=== PATIENT | male | born 1970 | race Caucasian/White ===

== ENCOUNTER 2023-02-05 13:50 | Emergency (ER) | payer OTHER ==
[~2023-02-05] VITALS: Ht 170.2 cm; Wt 98.9 kg
[2023-02-05 13:55] VITALS: BP 130/85
== END 2023-02-05 15:00 | disposition home or self-care (01) ==
LOC: ER 13:50
DX: M72.2 Plantar fascial fibromatosis (principal)
CPT/HCPCS: 73630; 99283-25

== ENCOUNTER 2023-02-17 10:54 | Emergency (ER) | payer OTHER ==
[~2023-02-17] VITALS: Ht 170.2 cm; Wt 97.1 kg
[2023-02-17 11:17] VITALS: BP 142/98
[2023-02-17] MEDS ORDERED: CEPH500 PO (11:18)
[2023-02-17] MEDS ORDERED: Bactrim Ds Tab1 EACH PO (11:18)
== END 2023-02-17 11:19 | disposition home or self-care (01) ==
LOC: ER 10:54
DX: L03.116 Cellulitis of left lower limb (principal)
CPT/HCPCS: 99282

== ENCOUNTER 2023-10-25 09:56 | Emergency (ER) | payer OTHER ==
[~2023-10-25] VITALS: Ht 172.7 cm; Wt 97.1 kg
[~2023-10-25 09:56] MED LIST: Bactrim Ds Tab1 EACH PO; CEPH500 PO
[2023-10-25] MEDS ORDERED: HYDROcodone 5-APAP 325 TAB PO ONE (11:20)
[2023-10-25] MEDS ORDERED: HYDR1TAB94 PO (11:24)
[2023-10-25 11:35] VITALS: BP 156/84
== END 2023-10-25 11:41 | disposition home or self-care (01) ==
LOC: ER 09:56
DX: S02.2XXA Fracture of nasal bones, initial encounter for closed fracture (principal); S01.81XA Laceration without foreign body of other part of head, initial encounter; S00.83XA Contusion of other part of head, initial encounter; R07.89 Other chest pain; H11.32 Conjunctival hemorrhage, left eye; Y04.8XXA Assault by other bodily force, initial encounter; F17.200 Nicotine dependence, unspecified, uncomplicated
CPT/HCPCS: 70450; 70486; 71101; 99284-25; A9270